=== PATIENT | male | born 1940 | race Caucasian/White ===

== ENCOUNTER 2017-07-12 12:29 | Emergency (ER) | payer OTHER ==
[~2017-07-12 12:29] MED LIST: CIPR250T2 PO; METR-1 PO; VITA100018 PO
[2017-07-12 12:38] VITALS: BP 131/60; PULSE 116; RESP 20; TEMP 98.6; O2SAT 97
[2017-07-12] MEDS ORDERED: ATOR10TA15 PO (12:49)
[2017-07-12] MEDS ORDERED: TAMS0.4C4 PO (12:49)
[2017-07-12] MEDS ORDERED: GABA300C5 PO (12:49)
[2017-07-12] MEDS ORDERED: METF500T PO (12:49)
--- NOTE | 2017-07-12 12:59 | PD ---
HPI Chief Complaint: GI Complaint Time Seen by Provider: 12:45 Travel History International Travel<30 days: No Contact w/Intl Traveler<30days: No Traveled to known affect area: No History of Present Illness HPI 76 y/o male presents with nonbloody vomiting that started yesterday. He states his last bowel movement was yesterday and was normal. He states he has a hoarse voice and sore throat as well. He denies any fever, pain or other concurrent complaints. He states he feels worse when he moves around. He denies other modifying factors. He denies taking any extra medication at home for these symptoms. He states he does not know what his blood sugar was. Duration is couple of days. PFSH Past Medical History Hx Anticoagulant Therapy: No High Cholesterol: Yes Diabetes: Yes Patient Takes Glucophage: Yes Genitourinary: Yes (BPH) Musculoskeletal: Yes (SCOLIOSIS) Neurologic: Yes (NEUROPATHY) Influenza Vaccination: No Social History Alcohol Use: Yes ("BIG TIME") Tobacco Use: Yes ("BIG TIME") Substance Use: No Allergies-Medications (Allergen,Severity, Reaction): Coded Allergies: No Known Allergies (Unverified Adverse Reaction, Unknown, 07/12/17) Reported Meds & Prescriptions Reported Meds & Active Scripts Active Zofran Odt (Ondansetron Odt) 4 Mg Tab 4 Mg SL Q8HR PRN Reported Tamsulosin (Tamsulosin HCl) 0.4 Mg Cap 0.8 Mg PO HS Atorvastatin (Atorvastatin Calcium) 10 Mg Tab 10 Mg PO HS Gabapentin 300 Mg Cap 300 Mg PO HS Metformin (Metformin HCl) 500 Mg Tab 250 Mg PO DAILY With a meal Review of Systems Except as stated in HPI: all other systems reviewed are Neg Physical Exam Narrative GENERAL: 76 y/o male in no apparent distress SKIN: Focused skin assessment warm/dry. HEAD: Atraumatic. Normocephalic. EYES: Pupils equal and round. No scleral icterus. No injection or drainage. ENT: No nasal bleeding or discharge. Mucous membranes pink and moist. Posterior oropharynx without exudate or erythema, bilateral TMs clear NECK: Trachea midline. No meningeal signs CARDIOVASCULAR: Regular rate and rhythm. RESPIRATORY: No accessory muscle use. Clear to auscultation. Breath sounds equal bilaterally. GASTROINTESTINAL: Abdomen soft, non-tender, nondistended. MUSCULOSKELETAL: No obvious deformities. No clubbing. No cyanosis. NEUROLOGICAL: Awake and alert. No obvious cranial nerve deficits. Motor grossly within normal limits. Normal speech. PSYCHIATRIC: Appropriate mood and affect; insight and judgment normal. Data Data Last Documented VS Vital Signs Date Time Temp Pulse Resp B/P (MAP) Pulse Ox O2 Delivery O2 Flow Rate FiO2 07/12/17 14:27 07/12/17 14:20 92 18 97 Room Air 07/12/17 12:38 98.6 Orders Orders Magnesium (Mg) (07/12/17 12:49) Phosphorus (Po4) (07/12/17 12:49) Complete Blood Count With Diff (07/12/17 12:49) Comprehensive Metabolic Panel (07/12/17 12:49) Urinalysis - C+S If Indicated (07/12/17 12:49) Chest, Pa & Lat (07/12/17 ) Iv Access Insert/Monitor (07/12/17 12:49) Ecg Monitoring (07/12/17 12:49) Oximetry (07/12/17 12:49) Group A Rapid Strep Screen (07/12/17 12:49) Ondansetron Odt (Zofran Odt) (07/12/17 13:00) Strep Culture (Group A) (07/12/17 13:00) Oral Rehydration (07/12/17 13:53) Ed Discharge Order (07/12/17 14:18) Labs Laboratory Tests Test 07/12/17 13:00 07/12/17 13:05 Urine Collection Type CLEAN CATCH Urine Color YELLOW Urine Turbidity SL CLOUDY Urine pH 6.0 Urine Specific [place] 1.025 Urine Protein 30 mg/dL Urine Glucose (UA) NEG mg/dL Urine Ketones 80 OR GREATER mg/dL Urine Occult Blood NEG Urine Nitrite NEG Urine Bilirubin NEG Urine Urobilinogen 1.0 MG/DL Urine Leukocyte Esterase NEG Urine WBC 0-2 /hpf Urine Squamous Epithelial Cells 6-8 /hpf Urine Amorphous Sediment MOD Microscopic Urinalysis Comment CULT NOT INDICATED Urine Collection Time 1300 White Blood Count 14.0 TH/MM3 Red Blood Count 4.43 MIL/MM3 Hemoglobin 14.8 GM/DL Hematocrit 43.6 % Mean Corpuscular Volume 98.4 FL Mean Corpuscular Hemoglobin 33.4 PG Mean Corpuscular Hemoglobin Concent 34.0 % Red Cell Distribution Width 13.0 % Platelet Count 175 TH/MM3 Mean Platelet Volume 8.7 FL Neutrophils (%) (Auto) 62.3 % Lymphocytes (%) (Auto) 21.9 % Monocytes (%) (Auto) 13.6 % Eosinophils (%) (Auto) 0.8 % Basophils (%) (Auto) 1.4 % Neutrophils # (Auto) 8.7 TH/MM3 Lymphocytes # (Auto) 3.1 TH/MM3 Monocytes # (Auto) 1.9 TH/MM3 Eosinophils # (Auto) 0.1 TH/MM3 Basophils # (Auto) 0.2 TH/MM3 CBC Comment AUTO DIFF Differential Comment AUTO DIFF CONFIRMED Blood Urea Nitrogen 14 MG/DL Creatinine 1.10 MG/DL Random Glucose 112 MG/DL Total Protein 8.7 GM/DL Albumin 4.6 GM/DL Calcium Level 9.5 MG/DL Phosphorus Level 1.7 MG/DL Magnesium Level 2.1 MG/DL Alkaline Phosphatase 78 U/L Aspartate Amino Transf (AST/SGOT) 46 U/L Alanine Aminotransferase (ALT/SGPT) 59 U/L Total Bilirubin 0.9 MG/DL Sodium Level 139 MEQ/L Potassium Level 3.7 MEQ/L Chloride Level 101 MEQ/L Carbon Dioxide Level 22.8 MEQ/L Anion Gap 15 MEQ/L Estimat Glomerular Filtration Rate 65 ML/MIN [facility] Medical Decision Making Medical Screen Exam Complete: Yes Emergency Medical Condition: Yes Medical Record Reviewed: Yes (Past history confirmed) Interpretation(s) CBC & BMP Diagram 07/12/17 13:05 Total Protein 8.7 H, Albumin 4.6, Calcium Level 9.5, Phosphorus Level 1.7 L, Magnesium Level 2.1, Alkaline Phosphatase 78, Aspartate Amino Transf (AST/SGOT) 46 H, Alanine Aminotransferase (ALT/SGPT) 59, Total Bilirubin 0.9 Last 24 hours Impressions Chest X-Ray 07/12/17 0000 Signed Impressions: CONCLUSION: Negative examination. Differential Diagnosis Pneumonia, URI, pharyngitis Narrative Course Will check basic blood work, chest x-ray, urinalysis and reevaluate after Zofran Patient has mild leukocytosis with mild raspy voice here which is likely viral laryngitis. Patient able to tolerate oral hydration. Given smoking history if his voice change persists he will need imaging for possible cancer. Patient understands this and was given return instructions. Patient denies any new complaints, all questions answered. Patient knows that follow up is incumbent on them and to return to the emergency room immediately if new or worsening symptoms develop. Patient given strict return precautions, vitals reviewed and are normal, agrees to further workup as an outpatient. Diagnosis Primary Impression: Vomiting Qualified Codes: R11.10 - Vomiting, unspecified Additional Impression: Sore throat Patient Instructions: General Instructions Additional Instructions: zofran as needed, follow with primary friday, return as needed Med/Other Pt SpecificInfo: Prescription(s) given Scripts Ondansetron Odt (Zofran Odt) 4 Mg Tab 4 MG SL Q8HR Y for Nausea/Vomiting, #5 TAB 0 Refills Prov: Claudia Butler MD 07/12/17 Disposition: 01 DISCHARGE HOME Condition: Stable Claudia Butler MD Jul 12, 2017 12:59
[2017-07-12] MEDS ORDERED: ONDANSETRON ODT 4 MG TAB PO ONE (13:00)
[2017-07-12 13:17] LABS: BLOOD, URINE NEG (NEG); GLUCOSE,URINE NEG (NEG); KETONE, URINE 80 OR GREATER mg/dL (NEG); NITRITE,URINE NEG (NEG); URINE COLOR YELLOW (YELLW/STRAW); URINE LEUKOCYTE ESTERASE NEG (NEG)
[2017-07-12 13:20] VITALS: O2SAT 96
[2017-07-12 13:21] LABS: AUTOMATED NEUTROPHIL # 8.7 TH/MM3 (1.8-7.7); BASOPHIL # 0.2 TH/MM3 (0-0.2); BASOPHIL % 1.4 % (0.0-2.0); EOSINOPHIL # 0.1 TH/MM3 (0-0.4); EOSINOPHIL % 0.8 % (0.0-4.0); HEMATOCRIT 43.6 % (39.0-51.0); HEMOGLOBIN 14.8 GM/DL (13.0-17.0); LYMPH % 21.9 % (9.0-44.0); LYMPHOCYTE # 3.1 TH/MM3 (1.0-4.8); MEAN CELL VOLUME 98.4 FL (80.0-100.0); MEAN CORPUSCULAR HEMOGLOBIN 33.4 PG (27.0-34.0); MEAN PLATELET VOLUME 8.7 FL (7.0-11.0); MONO % 13.6 % (0.0-8.0); MONOCYTE # 1.9 TH/MM3 (0-0.9); NEUT % 62.3 % (16.0-70.0); PLATELET COUNT 175 TH/MM3 (150-450); RED BLOOD COUNT 4.43 MIL/MM3 (4.50-5.90)
[2017-07-12 13:34] LABS: BILIRUBIN, URINE NEG (NEG)
[2017-07-12 13:36] LABS: AMORPHOUS SEDIMENT, URINE MOD; WBC, URINE 0-2 /hpf (0-5)
--- NOTE | 2017-07-12 13:40 | RADRPT ---
EXAM DATE: 07/12/2017 1:37 PM EDT AGE/SEX: 76 years / Male INDICATIONS: Cough, short of breath. CLINICAL DATA: This is the patient's initial encounter. Patient reports that signs and symptoms have been present for 1 day and indicates a pain score of 3/10. MEDICAL/SURGICAL HISTORY: None. None. COMPARISON: [facility], CT LUNG SCREENING, 02/05/2017. . FINDINGS: PA and lateral views of the chest demonstrate the lungs to be symmetrically aerated without evidence of mass, infiltrate or effusion. The cardiomediastinal contours are unremarkable. Osseous structures are intact. CONCLUSION: Negative examination. Electronically signed by: Keren Henry MD 07/12/2017 1:39 PM EDT
[2017-07-12 13:42] LABS: CHLORIDE 101 MEQ/L (98-107); SODIUM (NA) 139 MEQ/L (136-145)
[2017-07-12 13:46] LABS: ALBUMIN 4.6 GM/DL (3.4-5.0); BICARBONATE 22.8 MEQ/L (21.0-32.0); BLOOD UREA NITROGEN 14 MG/DL (7-18); CALCIUM 9.5 MG/DL (8.5-10.1); GLUCOSE,RANDOM 112 MG/DL (74-106); MAGNESIUM 2.1 MG/DL (1.5-2.5)
[2017-07-12 13:49] LABS: ALT (GPT) 59 U/L (12-78); AST (GOT) 46 U/L (15-37); GLOMERULAR FILTRATION RATE 65 ML/MIN (>89)
[2017-07-12 13:50] LABS: PHOSPHORUS 1.7 MG/DL (2.5-4.9)
[2017-07-12 13:51] LABS: TOTAL BILIRUBIN ADULT 0.9 MG/DL (0.2-1.0); TOTAL PROTEIN 8.7 GM/DL (6.4-8.2)
[2017-07-12 13:52] LABS: ALKALINE PHOSPHATASE 78 U/L (45-117)
[2017-07-12] MEDS ORDERED: ZOFR4TAB3 SL (14:16)
[2017-07-12 14:20] VITALS: BP 134/77; PULSE 92; RESP 18; O2SAT 97
== END 2017-07-12 14:32 | disposition home or self-care (01) ==
LOC: PHED 12:29
DX: R11.10 Vomiting, unspecified (principal); J02.9 Acute pharyngitis, unspecified; E78.00 Pure hypercholesterolemia, unspecified; E11.9 Type 2 diabetes mellitus without complications; M41.9 Scoliosis, unspecified; N40.0 Benign prostatic hyperplasia without lower urinary tract symptoms; Z72.0 Tobacco use
CPT/HCPCS: 71046; 80053; 81001; 83735; 84100; 85025; 87081; 87880; 99284